=== PATIENT | female | born 1980 | race Caucasian/White ===

== ENCOUNTER 2018-01-27 23:06 | Emergency (ER) | payer OTHER ==
[2018-01-27 23:27] LABS: ADD MAN DIFF? NO
[2018-01-27 23:28] LABS: BASO # 0.1 x10^3/uL (0.0-0.2); BASO % 1 % (0-3); EOS # 0.2 x10^3/uL (0.0-0.7); EOS % 2 % (0-3); HEMATOCRIT 35.6 % (36.0-47.0); HEMOGLOBIN 12.3 g/dL (12.0-15.5); LYMPH # 2.6 x10^3/uL (1.0-4.8); LYMPH % 32 % (24-48); MEAN CORPUSCULAR HEMOGLOBIN 29 pg (25-35); MEAN CORPUSCULAR HGB CONC 35 g/dL (31-37); MEAN CORPUSCULAR VOLUME 83 fL (79-100); MONO # 0.4 x10^3/uL (0.0-1.1); MONO % 6 % (0-9); NEUT # 4.7 x10^3uL (1.8-7.7); NEUT % 59 % (31-73); PLATELET COUNT 233 x10^3/uL (140-400); RED BLOOD COUNT 4.31 x10^6/uL (3.50-5.40); WHITE BLOOD COUNT 7.9 x10^3/uL (4.0-11.0)
[2018-01-27 23:38] LABS: ANION GAP 9 (6-14); BLOOD UREA NITROGEN 9 mg/dL (7-20); CARBON DIOXIDE 26 mmol/L (21-32); CHLORIDE 105 mmol/L (98-107); CREATININE 1.1 mg/dL (0.6-1.0); GFR 55.3; GLUCOSE 139 mg/dL (70-99); POTASSIUM 3.9 mmol/L (3.5-5.1); SODIUM 140 mmol/L (136-145)
[2018-01-27 23:39] LABS: MAGNESIUM 1.8 mg/dL (1.8-2.4)
[2018-01-27 23:39] LABS: URINE HCG POC HCG NEGATIVE (Negative)
[2018-01-27] MEDS: IV NORMAL SALINE 1000ML BAG 1,000 ML IV (23:39)
[2018-01-27 23:40] LABS: BILIRUBIN,URINE NEGATIVE (NEG); CLARITY,URINE CLEAR; COLOR,URINE YELLOW; GLUCOSE,URINE NEGATIVE (NEG); NITRITE,URINE NEGATIVE (NEG); PH,URINE 6.5; PROTEIN,URINE NEGATIVE (NEG-TRACE); UROBILINOGEN,URINE 0.2 mg/dL (0.2 mg/dL)
[2018-01-27 23:51] LABS: BACTERIA,URINE FEW /HPF (0-FEW); RBC,URINE OCC /HPF (0-2); SQUAMOUS EPITHELIAL CELL,UR MOD /LPF
[2018-01-27 23:52] LABS: THYROID STIM HORMONE (TSH) 3.662 uIU/mL (0.358-3.74)
[2018-01-28] MEDS: NITROFURANTOIN MONOHYD/M-CRYST 100 MG CAPSULE. PO (01:03)
== END 2018-01-28 01:08 | disposition home or self-care (01) ==
LOC: ER 01-28 01:08
DX: I47.1 Supraventricular tachycardia (principal); Z88.0 Allergy status to penicillin
CPT/HCPCS: 36415; 80048; 81001; 81025; 83735; 84443; 85025; 93005; 99285-25; J7030

== ENCOUNTER → 2021-08-01 | Outpatient (CLI) | payer OTHER ==
[2018-01-28 01:01] VITALS: BP 109/59
[~2021-08-01] MED LIST: NITR100C62 PO
--- NOTE | 2021-08-02 08:57 | KCIC ---
EXAMINATION: MRI LEFT KNEE WITHOUT IV CONTRAST CLINICAL HISTORY: Left knee pain x4 months. History of ACL and MCL tears in 2014 without surgical int ervention. TECHNIQUE: Multiplanar multisequential images obtained through the knee without intravenous contrast. COMPARISON: None FINDINGS: MENISCI: Medial Meniscus: Intact Lateral Meniscus: A very thin strip of meniscal tissue appears to extend centrally from the meniscal body to the level of the mid femoral condyle, possibly related to mild discoid meniscus. Within this strip of meniscal tissue, a small tear is suggested on a single image (series 8 image 11). LIGAMENTS: ACL: Grossly intact with some irregularity along the lateral aspect of the tibial attachment, possibl y related to remote injury. There is also a 5 mm ovoid focus of T1/PD intermediate signal in T2 hypoi ntense signal along the lateral aspect of the tibial attachment which may be related to mild arthrofi brosis or a nonossified joint body, best appreciated on coronal sequences. PCL: Intact MCL: Thickening of the proximal ligament, suggestive of remote injury. LCL Complex: Intact CARTILAGE: Medial Femoral Condyle: Small areas(s) of predominantly low grade (less than 50% thickness) cartilage loss and or fissuring with smaller area(s) of high grade (greater than 50% thickness) cartilage loss and or fissuring Medial Tibial Plateau: Small area of full thickness cartilage loss and or fissuring with subchondral marrow reactive/cystic changes Lateral Femoral Condyle: Normal Lateral Tibial Plateau: Small area(s) of full thickness cartilage loss and or fissuring with subchond ral marrow reactive/cystic changes Patella: Small area(s) of low grade (less than 50% thickness) partial thickness cartilage loss and or fissuring Trochlea: Small area(s) of full thickness cartilage loss and or fissuring centrally TENDONS: Distal quadriceps and patellar tendons intact. Popliteus tendon intact. BONES AND MARROW: No evidence of acute fracture or suspicious marrow replacing process. MUSCLES: Muscle bulk and signal intensity within normal limits. JOINT FLUID AND SYNOVIUM: Small joint effusion. No synovitis. No Webster's cyst. 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 ACL grossly intact with possible sequelae of remote injury near the tibial attachment as described. Mild tricompartmental chondral wear, greatest in the medial compartment. Electronically signed by: Marcus Pereira DO (08/02/2021 8:54 AM) [id number]
== END ==
LOC: KCIC MRI 15:15
PROVIDERS: ATTEND Clinical Nurse Specialist Family Health
DX: M25.462 Effusion, left knee (principal)
CPT/HCPCS: 73721

== ENCOUNTER → 2021-12-04 | Outpatient (CLI) | payer OTHER ==
[2018-01-28 01:01] VITALS: BP 109/59
== END ==
LOC: LAB 10:20
PROVIDERS: ATTEND Orthopaedic Surgery
DX: Z01.812 Encounter for preprocedural laboratory examination (principal); Z20.822 Contact with and (suspected) exposure to COVID-19
CPT/HCPCS: U0003